=== PATIENT | male | born 1960 | race African-American/Black ===

== ENCOUNTER 2018-06-26 17:30 | Inpatient (IN) | payer OTHER ==
[2018-06-26 17:40] VITALS: BMI 21.6
--- NOTE | 2018-06-26 20:11 | HP ---
CIWA Score - CIWA Score Nausea/Vomitin (vomiting x 2) Muscle Tremors: 4-Moderate,w/Arms Extend Anxiety: 3 Agitation: 3 Paroxysmal Sweats: 1-Minimal Palms Moist Orientation: 3-Disoriented Date>2 days Tacttile Disturbances: 0-None Auditory Disturbances: 0-None Visual Disturbances: 0-None Headache: 3-Moderate CIWA-Ar Total Score: 19 Admission ROS S - HPI Chief Complaint: Alcohol withdrawal symptoms Allergies/Adverse Reactions: Allergies Allergy/AdvReac Type Severity Reaction Status Date / Time No Known Allergies Allergy Verified 06/26/18 20:11 History of Present Illness: 58 years old male with a long period of alcohol dependence (since age 12) is seeking admission to detox. Patient has been in previous detox at [facility]. He reports eight months of sobriety. Patient has medical history of hypertension, hypercholesterolemia, chronic back pain, GERD, anxiety and depression. He denies suicide attempt and suicidal ideation at this time. Exam Limitations: Intoxication - Ebola screening Have you traveled outside of the country in the last 21 days: No Have you had contact with anyone from an Ebola affected area: No Have you been sick,other than usual withdrawal symptoms: No Do you have a fever: No - Review of Systems Constitutional: Chills, Loss of Appetite, Malaise, Changes in sleep EENT: reports: No Symptoms Reported Respiratory: reports: No Symptoms reported Cardiac: reports: No Symptoms Reported GI: reports: Poor Appetite, Poor Fluid Intake, Vomiting (x 2), Abdominal cramping : reports: No Symptoms Reported Musculoskeletal: reports: Back Pain, Muscle Pain Integumentary: reports: Dryness, Flushing Neuro: reports: Headache, Tremors Endocrine: reports: No Symptoms Reported Hematology: reports: No Symptoms Reported Psychiatric: reports: Anxious, Depressed Other Systems: Reviewed and Negative Patient History - Patient Medical History Hx Anemia: No Hx Asthma: No Hx Chronic Obstructive Pulmonary Disease (COPD): No Hx Cancer: No Hx Cardiac Disorders: No Hx Congestive Heart Failure: No Hx Hypertension: Yes (Not on medication) Hx Hypercholesterolemia: Yes Hx Pacemaker: No HX Cerebrovascular Accident: No Hx Seizures: No Hx Diabetes: No Hx Gastrointestinal Disorders: Yes (GERD - Not on medication) Hx Liver Disease: No Hx Genitourinary Disorders: No Hx Sexually Transmitted Disorders: No Hx Renal Disease (ESRD): No Hx Thyroid Disease: No Hx Human Immunodeficiency Virus (HIV): No (Negative 2018) Hx Hepatitis C: No Hx Depression: Yes (Not on medication) Hx Suicide Attempt: No (Denies suicidal ideation at this time) Hx Bipolar Disorder: Yes (Not on medication) Hx Schizophrenia: Yes (Not on medication) Other Medical History: Anxiety, chronic back pain - Not o medication - Patient Surgical History Past Surgical History: No - PPD History Previous Implant?: Yes Documented Results: Negative w/o proof Implanted On Prior R Admission?: No PPD to be Administered?: Yes - Reproductive History Patient is a Female of Child Bearing Age (11 -55 yrs old): No (Male) - Smoking Cessation Smoking history: Current every day smoker Have you smoked in the past 12 months: Yes Aproximately how many cigarettes per day: 14 Hx Chewing Tobacco Use: No Initiated information on smoking cessation: Yes 'Breaking Loose' booklet given: 06/26/18 - Substance & Tx. History Hx Alcohol Use: Yes Hx Substance Use: No Substance Use Type: Alcohol Hx Substance Use Treatment: Yes ([facility]) - Substances Abused Alcohol Route: Oral Frequency: Daily Amount used: VODKA - 1 PIN T, BEER - 2X 6OZ CAN Age of first use: 12 Date of Last Use: 06/26/18 Family Disease History - Family Disease History Family History: Denies Admission Physical Exam [facility] - Vital Signs Vital Signs: Vital Signs - 24 hr 06/26/18 17:39 Temperature 97.9 F Pulse Rate 90 Respiratory 18 Rate Blood Pressure 145/74 - Physical General Appearance: Yes: Moderate Distress, Tremorous, Irritable, Anxious HEENTM: Yes: EOMI, Normal ENT Inspection, Normal Voice, GABRIELLA Respiratory: Yes: Lungs Clear, Normal Breath Sounds, No Respiratory Distress Neck: Yes: Supple Breast: Yes: Breast Exam Deferred Cardiology: Yes: Tachycardia Abdominal: Yes: Normal Bowel Sounds Genitourinary: Yes: Within Normal Limits Back: Yes: Normal Inspection Musculoskeletal: Yes: Back pain, Muscle Pain Extremities: Yes: Tremors Integumentary: Yes: Warm Lymphatic: Yes: Within Normal Limits - Diagnostic (1) Alcohol dependence with uncomplicated withdrawal Current Visit: Yes Status: Chronic (2) Hypertension Current Visit: Yes Status: Chronic Qualifiers: Hypertension type: essential hypertension Qualified Code(s): I10 - Essential (primary) hypertension (3) Hypercholesterolemia Current Visit: Yes Status: Chronic (4) GERD (gastroesophageal reflux disease) Current Visit: Yes Status: Chronic (5) Anxiety Current Visit: Yes Status: Chronic (6) Depression Current Visit: Yes Status: Chronic Qualifiers: Depression Type: unspecified Qualified Code(s): F32.9 - Major depressive disorder, single episode, unspecified (7) Chronic back pain Current Visit: Yes Status: Chronic Qualifiers: Back pain location: low back pain (8) Nicotine dependence Current Visit: Yes Status: Chronic Qualifiers: Nicotine product type: cigarettes Substance use status: uncomplicated Qualified Code(s): F17.210 - Nicotine dependence, cigarettes, uncomplicated Cleared for Admission S - Detox or Rehab [facility] Level of Care: Medically Managed Detox Regimen/Protocol: Librium [facility] Breath Alcohol Content Breath Alcohol Content: 0.341 Urine Drug Screen - Results Drug Screen Negative: Yes
[2018-06-26] MEDS ORDERED: LOPERAMIDE HCL 2 MG CAPSULE PO PRN (20:34)
[2018-06-26] MEDS ORDERED: MENTHOL/PHENOL 1 EACH UD MM PRN (20:34)
[2018-06-26] MEDS ORDERED: MAG HYDROX/AL HYDROX/SIMETH 30 ML UNIT-DOSE CUP PO PRN (20:34)
[2018-06-26] MEDS ORDERED: IBUPROFEN 400 MG TABLET (FP) PO PRN (20:34)
[2018-06-26] MEDS ORDERED: MAGNESIUM CITRATE 300 ML BOTTLE PO PRN (20:34)
[2018-06-26] MEDS ORDERED: ACETAMINOPHEN 325 MG TABLET (FP) PO PRN (20:34)
[2018-06-26] MEDS ORDERED: P-EPHED 60MG/TRIPROLIDI 2.5MG TABLET PO PRN (20:34)
[2018-06-26] MEDS ORDERED: NICOTINE POLACRILEX 2 MG GUM BC PRN (20:34)
[2018-06-26] MEDS ORDERED: chlordiazePOXIDE HCL 25 MG CAPSULE PO PRN (20:34)
[2018-06-26] MEDS ORDERED: guaiFENesin/D-METHORPHAN HB 10 ML UNIT-DOSE CUPS PO PRN (20:34)
[2018-06-26] MEDS ORDERED: MAGNESIUM HYDROX 2400MG/30ML ORAL SUSPENSION 30 ML CUP PO PRN (20:34)
[2018-06-26] MEDS ORDERED: MELATONIN 5 MG TABLETS PO PRN (22:00)
[2018-06-26] MEDS: chlordiazePOXIDE HCL 25 MG CAPSULE PO SCH (22:31)
[2018-06-26] MEDS: THIAMINE HCL 100 MG TABLET (FP) PO SCH (22:31)
[2018-06-27] MEDS: chlordiazePOXIDE HCL 25 MG CAPSULE PO SCH ×4 (05:51→22:21)
[2018-06-27] MEDS: NICOTINE 14 MG/24 HOURS TOPICAL PATCH TD SCH (10:11)
[2018-06-27] MEDS: PRENATAL VITAMINS W/ FOLIC ACID TABLET (FP) PO SCH (10:11)
[2018-06-27 10:32] LABS: URINE APPEARANCE CLEAR; URINE BILIRUBIN NEGATIVE (<2.0 mg/dL); URINE COLOR YELLOW; URINE GLUCOSE (UA) NEGATIVE (NEGATIVE); URINE KETONE TRACE (NEGATIVE); URINE LEUK ESTERASE NEGATIVE (NEGATIVE); URINE NITRITE NEGATIVE (NEGATIVE); URINE PROTEIN NEGATIVE (NEGATIVE); URINE UROBILINOGEN 4.0 E.U/dl mg/dL (0.2-1.0)
[2018-06-27 10:33] LABS: HEMOGLOBIN 9.9 GM/dL (11.7-16.9); MCH 32.2 pg (25.7-33.7); PLATELET COUNT 359 K/MM3 (134-434); RBC 3.07 M/mm3 (4.00-5.60)
[2018-06-27 10:35] LABS: HEMATOCRIT 30.7 % (35.4-49); MCHC 32.2 g/dl (32.0-35.9); MEAN CELL VOLUME 99.9 fl (80-96); MEAN PLT VOLUME 7.4 fl (7.5-11.1); RDW 17.6 % (11.9-15.9); WHITE BLOOD COUNT 4.1 K/mm3 (4.0-10.0)
[2018-06-27 10:49] LABS: ALK PHOS 71 U/L (45-117); ANION GAP 13 MMOL/L (8-16); BILIRUBIN,TOTAL 0.5 mg/dL (0.2-1); BLOOD UREA NITROGEN 12 mg/dL (7-18); CALCIUM 7.9 mg/dL (8.5-10.1); CHLORIDE 109 mmol/L (98-107); CO2 23 mmol/L (21-32); CREATININE 0.7 mg/dL (0.55-1.3); GLUCOSE,RANDOM 74 mg/dL (74-106); POTASSIUM 3.8 mmol/L (3.5-5.1); SGOT/AST 29 U/L (15-37); SGPT/ALT 28 U/L (13-61); SODIUM 146 mmol/L (136-145); TOT PROT 6.2 g/dl (6.4-8.2)
--- NOTE | 2018-06-27 10:50 | CONSULT ---
[facility] Psychiatric Consult - Data Date of interview: 06/27/18 Admission source: [facility] Identifying data: Patient is a 58 year old single male, without children, unemployed, and lives in a snf. This is patient's first admission to detox at [facility]. Patient admitted to for alcohol dependence. Substance Abuse History: Smoking Cessation. Smoking history: Current every day smoker. Have you smoked in the past 12 months: Yes. Aproximately how many cigarettes per day: 14. Hx Chewing Tobacco Use: No. Initiated information on smoking cessation: Yes. 'Breaking Loose' booklet given: 06/26/18. - Substance & Tx. History. Hx Alcohol Use: Yes. Hx Substance Use: No. Substance Use Type : Alcohol. Hx Substance Use Treatment: Yes ([facility] - Substances Abused. Alcohol. Route: Oral. Frequency: Daily. Amount used: VODKA - 1 PIN T, BEER - 2X 6OZ CAN. Age of first use: 12. Date of Last Use: Medical History: hypertension, GERD Psychiatric History: Patient is a poor historian. He denies h/o psychiatric hospitalization, and suicide attempt. Outpatient psychiatric care was provided at the [facility]. He reports noncompliance to medication. Reports last taking psychotropic medications over two months ago and is unable to recall the medications he is prescribed. Claims to have a diagnosis of schizophrenia/bipolar disorder. No psychosis or nidia noted. At present, patient reports feeling "down" and difficulty sleeping. Physical/Sexual Abuse/Trauma History: denies. Mental Status Exam - Mental Status Exam Alert and Oriented to: Time, Place, Person Cognitive Function: Good Patient Appearance: Well Groomed Mood: Euthymic Affect: Mood Congruent Patient Behavior: Cooperative Speech Pattern: Appropriate Voice Loudness: Moderately Soft/Quiet Thought Process: Intact, Goal Oriented Thought Disorder: Not Present Hallucinations: Denies Suicidal Ideation: Denies Homicidal Ideation: Denies Insight/Judgement: Poor Sleep: Fair Appetite: Fair Muscle strength/Tone: Normal Gait/Station: Normal Psychiatric Findings - Problem List ([place] 1, 2,3) (1) Alcohol dependence with uncomplicated withdrawal Current Visit: Yes Status: Acute (2) Nicotine dependence Current Visit: Yes Status: Chronic Qualifiers: Nicotine product type: cigarettes Substance use status: uncomplicated Qualified Code(s): F17.210 - Nicotine dependence, cigarettes, uncomplicated (3) Alcohol-induced mood disorder Current Visit: Yes Status: Acute (4) Insomnia Current Visit: Yes Status: Acute - Initial Treatment Plan Initial Treatment Plan: Psychoeducation provided. Detoxification in progress. Will order seroquel 50mg. Benefits and side effects discussed. Verbal consent given.
--- NOTE | 2018-06-27 11:36 | EKG ---
Test Reason : Blood Pressure : / mmHG Vent. Rate : 097 BPM Atrial Rate : 097 BPM P-R Int : 172 ms QRS Dur : 076 ms QT Int : 376 ms P-R-T Axes : 078 048 053 degrees QTc Int : 477 ms NORMAL SINUS RHYTHM NORMAL ECG NO PREVIOUS ECGS AVAILABLE Confirmed by SHWETA ALLEN MD ([id number]) on 06/27/2018 11:36:09 AM Referred By: Confirmed By:SHWETA ALLEN MD
--- NOTE | 2018-06-27 13:55 | PN ---
S CIWA - CIWA Score Nausea/Vomitin-No Nausea/No Vomiting Muscle Tremors: None Anxiety: 4-Mod. Anxious/Guarded Agitation: 4-Moderately Restless Paroxysmal Sweats: No Perspiration Orientation: 0-Oriented Tacttile Disturbances: 0-None Auditory Disturbances: 0-None Visual Disturbances: 0-None Headache: 0-None Present CIWA-Ar Total Score: 8 BHS Progress Note (SOAP) Subjective: PATIENT ANXIOUS, IRRITABLE. PACING IN ROOM. Objective: 06/27/18 13:54 Laboratory Tests 06/27/18 06/27/18 06/27/18 07:30 07:30 07:30 WBC 4.1 RBC 3.07 L Hgb 9.9 L Hct 30.7 L MCV 99.9 H MCH 32.2 MCHC 32.2 RDW 17.6 H Plt Count 359 MPV 7.4 L Sodium 146 H Potassium 3.8 Chloride 109 H Carbon Dioxide 23 Anion Gap 13 BUN 12 Creatinine 0.7 Creat Clearance w eGFR > 60 Random Glucose 74 Calcium 7.9 L Total Bilirubin 0.5 AST 29 ALT 28 Alkaline Phosphatase 71 Total Protein 6.2 L Albumin 3.0 L Urine Color Urine Appearance Urine pH Ur Specific [place] Urine Protein Urine Glucose (UA) Urine Ketones Urine Blood Urine Nitrite Urine Bilirubin Urine Urobilinogen Ur Leukocyte Esterase RPR Titer Nonreactive 06/27/18 07:30 WBC RBC Hgb Hct MCV MCH MCHC RDW Plt Count MPV Sodium Potassium Chloride Carbon Dioxide Anion Gap BUN Creatinine Creat Clearance w eGFR Random Glucose Calcium Total Bilirubin AST ALT Alkaline Phosphatase Total Protein Albumin Urine Color Yellow Urine Appearance Clear Urine pH 6.0 Ur Specific [place] 1.025 Urine Protein Negative Urine Glucose (UA) Negative Urine Ketones Trace H Urine Blood Negative Urine Nitrite Negative Urine Bilirubin Negative Urine Urobilinogen 4.0 e.u/dl Ur Leukocyte Esterase Negative RPR Titer PE: ALERT AND ORIENTED X 3 SKIN WARM AND DRY AMB AD RACHAEL EXT FULL ROM ANXIOUS AND RESTLESS Assessment: 06/27/18 13:55 WITHDRAWAL SX Plan: CONTINUE DETOX ENCOURAGE ORAL FLUIDS CONTINUE TO MONITOR CLINICALLY
[2018-06-27] MEDS: THIAMINE HCL 100 MG TABLET (FP) PO SCH (22:21)
[2018-06-27] MEDS: QUEtiapine FUMARATE 50 MG TABLET PO SCH (22:21)
[2018-06-28] MEDS: chlordiazePOXIDE HCL 25 MG CAPSULE PO SCH ×4 (06:45→18:00)
[2018-06-28] MEDS: PRENATAL VITAMINS W/ FOLIC ACID TABLET (FP) PO SCH (10:34)
[2018-06-28] MEDS: NICOTINE 14 MG/24 HOURS TOPICAL PATCH TD SCH (10:34)
--- NOTE | 2018-06-28 11:02 | PN ---
S CIWA - CIWA Score Nausea/Vomitin-No Nausea/No Vomiting Muscle Tremors: None Anxiety: 4-Mod. Anxious/Guarded Agitation: 3 Paroxysmal Sweats: No Perspiration Orientation: 0-Oriented Tacttile Disturbances: 0-None Auditory Disturbances: 0-None Visual Disturbances: 0-None Headache: 0-None Present CIWA-Ar Total Score: 7 BHS Progress Note (SOAP) Subjective: PATIENT ANXIOUS AND IRRITABLE. 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 Objective: 06/28/18 11:00 Vital Signs Temperature 98.6 F 06/28/18 09:36 Pulse Rate 78 06/28/18 09:36 Respiratory Rate 18 06/28/18 09:36 Blood Pressure 121/92 06/28/18 09:36 O2 Sat by Pulse Oximetry (%) Laboratory Tests 06/27/18 06/27/18 06/27/18 07:30 07:30 07:30 WBC 4.1 RBC 3.07 L Hgb 9.9 L Hct 30.7 L MCV 99.9 H MCH 32.2 MCHC 32.2 RDW 17.6 H Plt Count 359 MPV 7.4 L Sodium 146 H Potassium 3.8 Chloride 109 H Carbon Dioxide 23 Anion Gap 13 BUN 12 Creatinine 0.7 Creat Clearance w eGFR > 60 Random Glucose 74 Calcium 7.9 L Total Bilirubin 0.5 AST 29 ALT 28 Alkaline Phosphatase 71 Total Protein 6.2 L Albumin 3.0 L Urine Color Urine Appearance Urine pH Ur Specific [place] Urine Protein Urine Glucose (UA) Urine Ketones Urine Blood Urine Nitrite Urine Bilirubin Urine Urobilinogen Ur Leukocyte Esterase RPR Titer Nonreactive 06/27/18 07:30 WBC RBC Hgb Hct MCV MCH MCHC RDW Plt Count MPV Sodium Potassium Chloride Carbon Dioxide Anion Gap BUN Creatinine Creat Clearance w eGFR Random Glucose Calcium Total Bilirubin AST ALT Alkaline Phosphatase Total Protein Albumin Urine Color Yellow Urine Appearance Clear Urine pH 6.0 Ur Specific [place] 1.025 Urine Protein Negative Urine Glucose (UA) Negative Urine Ketones Trace H Urine Blood Negative Urine Nitrite Negative Urine Bilirubin Negative Urine Urobilinogen 4.0 e.u/dl Ur Leukocyte Esterase Negative RPR Titer PE: ALERT AND ORIENTED X 3 IRRITABLE AND ANXIOUS EXT FULL ROM AMB AD RACHAEL Assessment: 06/28/18 11:01 WITHDRAWAL SYNDROME Plan: CONTINUE DETOX ENCOURAGE ORAL FLUIDS CONTINUE TO MONITOR
[2018-06-28] MEDS: QUEtiapine FUMARATE 50 MG TABLET PO SCH (22:32)
[2018-06-28] MEDS: chlordiazePOXIDE 5 MG CAPSULE PO SCH (22:33)
[2018-06-28] MEDS: THIAMINE HCL 100 MG TABLET (FP) PO SCH (22:33)
[2018-06-29] MEDS: chlordiazePOXIDE 5 MG CAPSULE PO SCH ×3 (05:50→19:11)
--- NOTE | 2018-06-29 10:24 | PN ---
BHS Progress Note (SOAP) Subjective: feeling better no tremor less sweat no gi distress sleep better at night Objective: 06/29/18 10:20 Vital Signs Temperature 98.1 F 06/29/18 09:28 Pulse Rate 72 06/29/18 09:28 Respiratory Rate 18 06/29/18 09:28 Blood Pressure 163/78 06/29/18 09:28 O2 Sat by Pulse Oximetry (%) Laboratory Last Values WBC 4.1 K/mm3 (4.0-10.0) 06/27/18 07:30 RBC 3.07 M/mm3 (4.00-5.60) L 06/27/18 07:30 Hgb 9.9 GM/dL (11.7-16.9) L 06/27/18 07:30 Hct 30.7 % (35.4-49) L 06/27/18 07:30 MCV 99.9 fl (80-96) H 06/27/18 07:30 MCH 32.2 pg (25.7-33.7) 06/27/18 07:30 MCHC 32.2 g/dl (32.0-35.9) 06/27/18 07:30 RDW 17.6 % (11.9-15.9) H 06/27/18 07:30 Plt Count 359 K/MM3 (134-434) 06/27/18 07:30 MPV 7.4 fl (7.5-11.1) L 06/27/18 07:30 Sodium 146 mmol/L (136-145) H 06/27/18 07:30 Potassium 3.8 mmol/L (3.5-5.1) 06/27/18 07:30 Chloride 109 mmol/L (98-107) H 06/27/18 07:30 Carbon Dioxide 23 mmol/L (21-32) 06/27/18 07:30 Anion Gap 13 MMOL/L (8-16) 06/27/18 07:30 BUN 12 mg/dL (7-18) 06/27/18 07:30 Creatinine 0.7 mg/dL (0.55-1.3) 06/27/18 07:30 Creat Clearance w eGFR > 60 (>60) 06/27/18 07:30 Random Glucose 74 mg/dL (74-106) 06/27/18 07:30 Calcium 7.9 mg/dL (8.5-10.1) L 06/27/18 07:30 Total Bilirubin 0.5 mg/dL (0.2-1) 06/27/18 07:30 AST 29 U/L (15-37) 06/27/18 07:30 ALT 28 U/L (13-61) 06/27/18 07:30 Alkaline Phosphatase 71 U/L (45-117) 06/27/18 07:30 Total Protein 6.2 g/dl (6.4-8.2) L 06/27/18 07:30 Albumin 3.0 g/dl (3.4-5.0) L 06/27/18 07:30 Urine Color Yellow 06/27/18 07:30 Urine Appearance Clear 06/27/18 07:30 Urine pH 6.0 (5.0-8.0) 06/27/18 07:30 Ur Specific [place] 1.025 (1.010-1.035) 06/27/18 07:30 Urine Protein Negative (NEGATIVE) 06/27/18 07:30 Urine Glucose (UA) Negative (NEGATIVE) 06/27/18 07:30 Urine Ketones Trace (NEGATIVE) H 06/27/18 07:30 Urine Blood Negative (NEGATIVE) 06/27/18 07:30 Urine Nitrite Negative (NEGATIVE) 06/27/18 07:30 Urine Bilirubin Negative (<2.0 mg/dL) 06/27/18 07:30 Urine Urobilinogen 4.0 e.u/dl mg/dL (0.2-1.0) 06/27/18 07:30 Ur Leukocyte Esterase Negative (NEGATIVE) 06/27/18 07:30 RPR Titer Nonreactive (NONREACTIVE) 06/27/18 07:30 lab noted patient agrees to follow up with primary care provider for cbc and begin calcium supplement 06/29/18 10:25 Assessment: 06/29/18 10:26 mild withdrawal sx Plan: medically supervised detox
[2018-06-29] MEDS: PRENATAL VITAMINS W/ FOLIC ACID TABLET (FP) PO SCH (10:26)
[2018-06-29] MEDS: NICOTINE 14 MG/24 HOURS TOPICAL PATCH TD SCH (10:26)
[2018-06-29] MEDS: THIAMINE HCL 100 MG TABLET (FP) PO SCH (22:19)
[2018-06-29] MEDS: QUEtiapine FUMARATE 50 MG TABLET PO SCH (22:19)
[2018-06-29] MEDS ORDERED: chlordiazePOXIDE HCL 10 MG CAPSULE PO SCH (23:00)
[2018-06-30 06:49] VITALS: BP 144/77; PULSE 70; TEMP 97
--- NOTE | 2018-06-30 09:45 | DS ---
[facility] Detox Discharge Summary Admission Date: 06/26/18 Discharge Date: 06/30/18 - History Present History: Alcohol Dependence Additional Comments: 58 years old male admitted on 06/26/18 for alcohol withdrawal sx completed alcohol detox regimen tolerated well denies alcohol withdrawal sx reported has hypertension x 2-3 years treated with antihypertensant unable to remember the name of the medication patient stated that he is using [facility] in the [place], the speech writer is unable to locate the name of the antihypertensant, encourage the patient to machine pecan picker amilodopin 5 mg po bid health teaching on alcohol related complications including bp elevation patient reported that primary care provider Dr. Manjarrez in the [place] at [facility] recommend the patient follow up with primary care provider Pertinent Past History: encourage the patient provide lab report to primary care provider calcium rich food and stop cigarette smoking health teaching on risks of complications on nicotine induced cardiovascular damage - Physical Exam Results Vital Signs: Vital Signs Temperature 97 F L 06/30/18 06:48 Pulse Rate 70 06/30/18 06:48 Respiratory Rate 18 06/30/18 06:48 Blood Pressure 144/77 06/30/18 06:48 O2 Sat by Pulse Oximetry (%) Pertinent Admission Physical Exam Findings: alcohol withdrawal sx Vital Signs Temperature 97 F L 06/30/18 06:48 Pulse Rate 70 06/30/18 06:48 Respiratory Rate 18 06/30/18 06:48 Blood Pressure 144/77 06/30/18 06:48 O2 Sat by Pulse Oximetry (%) Laboratory Last Values WBC 4.1 K/mm3 (4.0-10.0) 06/27/18 07:30 RBC 3.07 M/mm3 (4.00-5.60) L 06/27/18 07:30 Hgb 9.9 GM/dL (11.7-16.9) L 06/27/18 07:30 Hct 30.7 % (35.4-49) L 06/27/18 07:30 MCV 99.9 fl (80-96) H 06/27/18 07:30 MCH 32.2 pg (25.7-33.7) 06/27/18 07:30 MCHC 32.2 g/dl (32.0-35.9) 06/27/18 07:30 RDW 17.6 % (11.9-15.9) H 06/27/18 07:30 Plt Count 359 K/MM3 (134-434) 06/27/18 07:30 MPV 7.4 fl (7.5-11.1) L 06/27/18 07:30 Sodium 146 mmol/L (136-145) H 06/27/18 07:30 Potassium 3.8 mmol/L (3.5-5.1) 06/27/18 07:30 Chloride 109 mmol/L (98-107) H 06/27/18 07:30 Carbon Dioxide 23 mmol/L (21-32) 06/27/18 07:30 Anion Gap 13 MMOL/L (8-16) 06/27/18 07:30 BUN 12 mg/dL (7-18) 06/27/18 07:30 Creatinine 0.7 mg/dL (0.55-1.3) 06/27/18 07:30 Creat Clearance w eGFR > 60 (>60) 06/27/18 07:30 Random Glucose 74 mg/dL (74-106) 06/27/18 07:30 Calcium 7.9 mg/dL (8.5-10.1) L 06/27/18 07:30 Total Bilirubin 0.5 mg/dL (0.2-1) 06/27/18 07:30 AST 29 U/L (15-37) 06/27/18 07:30 ALT 28 U/L (13-61) 06/27/18 07:30 Alkaline Phosphatase 71 U/L (45-117) 06/27/18 07:30 Total Protein 6.2 g/dl (6.4-8.2) L 06/27/18 07:30 Albumin 3.0 g/dl (3.4-5.0) L 06/27/18 07:30 Urine Color Yellow 06/27/18 07:30 Urine Appearance Clear 06/27/18 07:30 Urine pH 6.0 (5.0-8.0) 06/27/18 07:30 Ur Specific [place] 1.025 (1.010-1.035) 06/27/18 07:30 Urine Protein Negative (NEGATIVE) 06/27/18 07:30 Urine Glucose (UA) Negative (NEGATIVE) 06/27/18 07:30 Urine Ketones Trace (NEGATIVE) H 06/27/18 07:30 Urine Blood Negative (NEGATIVE) 06/27/18 07:30 Urine Nitrite Negative (NEGATIVE) 06/27/18 07:30 Urine Bilirubin Negative (<2.0 mg/dL) 06/27/18 07:30 Urine Urobilinogen 4.0 e.u/dl mg/dL (0.2-1.0) 06/27/18 07:30 Ur Leukocyte Esterase Negative (NEGATIVE) 06/27/18 07:30 RPR Titer Nonreactive (NONREACTIVE) 06/27/18 07:30 lab noted calcium rich food - Treatment Hospital Course: Detox Protocol Followed, Detoxed Safely, Responded well, Discharged Condition Good, Rehab Referral Accepted Patient has Accepted a Rehab Referral to: the [facility] care outpatient - Medication Discharge Medications: Ambulatory Orders Amlodipine Besylate [Norvasc -] 5 mg PO BID #20 tablet 06/30/18 - Diagnosis (1) Alcohol dependence with uncomplicated withdrawal Current Visit: Yes Status: Acute (2) Alcohol-induced mood disorder Current Visit: Yes Status: Suspected (3) Hypertension Current Visit: Yes Status: Chronic Qualifiers: Hypertension type: essential hypertension Qualified Code(s): I10 - Essential (primary) hypertension (4) Nicotine dependence Current Visit: Yes Status: Acute Qualifiers: Nicotine product type: cigarettes Substance use status: in withdrawal Qualified Code(s): F17.213 - Nicotine dependence, cigarettes, with withdrawal - AMA Did Patient Leave Against Medical Advice: No
== END 2018-06-30 09:08 | disposition home or self-care (01) | DRG 775 ==
LOC: YASAS 17:30 → Y6N 21:31
PROC: HZ2ZZZZ Detoxification Services for Substance Abuse Treatment (ICD-10-PCS; principal; 2018-06-26)
DX: F10.230 Alcohol dependence with withdrawal, uncomplicated (principal); F10.24 Alcohol dependence with alcohol-induced mood disorder; F17.213 Nicotine dependence, cigarettes, with withdrawal; F41.9 Anxiety disorder, unspecified; F32.9 Major depressive disorder, single episode, unspecified; I10 Essential (primary) hypertension; G47.00 Insomnia, unspecified; K21.9 Gastro-esophageal reflux disease without esophagitis; E78.00 Pure hypercholesterolemia, unspecified; M54.5 Low back pain; G89.29 Other chronic pain; R00.0 Tachycardia, unspecified
CPT/HCPCS: 36415; 80053; 81003; 85027; 86593; 93005; 93010